=== PATIENT | female | born 1940 | race Caucasian/White ===

== ENCOUNTER 2017-08-28 13:15 | Inpatient (IN) | payer OTHER ==
[~2017-08-28] VITALS: Ht 147.3 cm; Wt 73.5 kg
[2017-08-28] MEDS ORDERED: PRINIVIL20 MG PO (13:53)
[2017-08-28] MEDS ORDERED: AMLODIPINE BESY10 MG PO (13:54)
[2017-08-28] MEDS ORDERED: ATORVASTATIN CA10 MG PO (13:55)
[2017-09-05] MEDS ORDERED: GABAPENTIN800 MG PO (09:43)
[2017-09-05] MEDS ORDERED: DOCUSATE SODIU100 MG PO (09:43)
[2017-09-05] MEDS ORDERED: CLONAZEPAM1 MG PO (09:44)
[2017-09-05] MEDS ORDERED: PERCOCET 5-3251 EACH PO (09:44)
[2017-09-05] MEDS ORDERED: AMOX-CLAV 875-1 EACH PO (09:46)
== END 2017-09-05 13:57 | disposition home or self-care (01) | DRG 460 ==
LOC: O/R 09-04 04:00 → PED 09-04 04:00 → SURH 09-04 13:00 → PED 09-04 14:25
PROVIDERS: Orthopaedic Surgery Orthopaedic Surgery of the Spine
PROC: 0SG00AJ Fusion of Lumbar Vertebral Joint with Interbody Fusion Device, Posterior Approach, Anterior Column, Open Approach (ICD-10-PCS; 2017-09-04)
PROC: 0ST20ZZ Resection of Lumbar Vertebral Disc, Open Approach (ICD-10-PCS; 2017-09-04)
PROC: 07DS3ZZ Extraction of Vertebral Bone Marrow, Percutaneous Approach (ICD-10-PCS; 2017-09-04)
PROC: 0SG00A0 Fusion of Lumbar Vertebral Joint with Interbody Fusion Device, Anterior Approach, Anterior Column, Open Approach (ICD-10-PCS; principal; 2017-09-04 13:00)
DX: M48.061 Spinal stenosis, lumbar region without neurogenic claudication (principal); M43.16 Spondylolisthesis, lumbar region

== ENCOUNTER 2022-04-25 06:40 | Day surgery (SDC) | payer OTHER ==
[~2022-04-25] VITALS: Ht 165.1 cm; Wt 68.0 kg
[~2022-04-25 06:40] MED LIST: AMLODIPINE BESY10 MG PO; AMOX-CLAV 875-1 EACH PO; ATORVASTATIN CA10 MG PO; CLONAZEPAM1 MG PO; DOCUSATE SODIU100 MG PO; GABAPENTIN800 MG PO; PERCOCET 5-3251 EACH PO; PRINIVIL20 MG PO; ZESTRIL40 M1 PO
[2022-04-25] MEDS ORDERED: ULTRACET PO (13:50)
== END 2022-04-25 17:40 | disposition home or self-care (01) ==
LOC: CIR.AMB 06:40 → EDBD 09:45 → CIR.AMB 09:45
PROVIDERS: ATTEND Surgery
DX: T85.193A Other mechanical complication of implanted electronic neurostimulator, generator, initial encounter (principal); R15.9 Full incontinence of feces; K29.00 Acute gastritis without bleeding; K21.9 Gastro-esophageal reflux disease without esophagitis; I10 Essential (primary) hypertension; E11.9 Type 2 diabetes mellitus without complications; E78.5 Hyperlipidemia, unspecified; Z86.010 Personal history of colon polyps; F12.90 Cannabis use, unspecified, uncomplicated; Z20.822 Contact with and (suspected) exposure to COVID-19
CPT/HCPCS: 64581; 64590; C1778; L8679

== ENCOUNTER 2022-05-26 19:49 | Emergency (ER) | payer OTHER ==
[~2022-05-26] VITALS: Ht 165.1 cm; Wt 68.9 kg
[~2022-05-26 19:49] MED LIST changes: +ULTRACET PO
[2022-05-26] MEDS ORDERED: CRESTOR5 MG (19:58)
[2022-05-26] MEDS ORDERED: JARDIANCE10 MG (19:58)
== END 2022-05-26 20:28 | disposition home or self-care (01) ==
LOC: ER 19:49
DX: Z48.02 Encounter for removal of sutures (principal)